=== PATIENT | female | born 1995 | race Caucasian/White ===

== ENCOUNTER 2021-08-26 20:47 | Emergency (ER) | payer OTHER ==
[~2021-08-26] VITALS: Ht 160 cm; Wt 57.6 kg
--- NOTE | 2021-08-26 21:57 | NUR ---
AFTER BEING TRIAGED, PATIENT WAS PLACED BACK IN WAITING ROOM DUE TO NO BEDS AVAILABLE IN THE ER.
[2021-08-26 22:20] LABS: *BILIRUBIN,URIN NEGATIVE (NEGATIVE); *COLOR,URINE YELLOW (YELLOW); *KETONES,URINE NEGATIVE (NEGATIVE); LEUKOCYTE ESTERASE ,URINE 1+ (NEGATIVE); NITRITE, URINE NEGATIVE (NEGATIVE); PH,URINE 6.5 (5.0-8.0); UGLUCOSE NEGATIVE (NEGATIVE)
[2021-08-26 22:22] LABS: *BLOOD, URINE TRACE (NEGATIVE)
[2021-08-26 22:23] LABS: *CLARITY,URINE HAZY (CLEAR)
[2021-08-26 22:34] LABS: *URINE HCG, QUAL NEGATIVE (NEGATIVE); BACTERIA,URINE MODERATE /HPF (NONE SEEN); RBC,URINE 0-3 /HPF (0-3); SQUAMOUS EPITHELIAL CELL,UR FEW /HPF (NONE SEEN)
--- NOTE | 2021-08-26 22:54 | NUR ---
PLACED IN 4A at this time.
[2021-08-26] MEDS ORDERED: NITROFURANTOIN/NITROFURAN MAC 100 MG CAPSULE PO ONE ×2 (23:19→23:30)
[2021-08-26] MEDS ORDERED: NITR-84 PO (23:19)
[2021-08-26] MEDS ORDERED: CEphaleXIN 500 MG CAPSULE ONE (23:19)
[2021-08-26] MEDS ORDERED: CEPH500T PO (23:19)
--- NOTE | 2021-08-26 23:25 | NUR ---
Patient discharged to home in stable condition. Written and verbal after care instructions given. Patient verbalizes understanding of instructions. Stressed follow up or return to ER for worsening s/s.
[2021-08-26] MEDS ORDERED: CEphaleXIN 500 MG CAPSULE PO ONE (23:30)
[2021-08-27 00:20] VITALS: BP 105/71
== END 2021-08-26 23:28 | disposition home or self-care (01) ==
LOC: ER 20:53
DX: N39.0 Urinary tract infection, site not specified (principal); R10.9 Unspecified abdominal pain
CPT/HCPCS: 84703; 87086; A4663

== ENCOUNTER 2024-10-02 11:40 | Emergency (ER) | payer OTHER ==
[~2024-10-02] VITALS: Ht 160 cm; Wt 59.0 kg
[~2024-10-02 11:40] MED LIST: CEPH500T PO; NITR-84 PO
[2024-10-02 12:00] LABS: *BILIRUBIN,URIN NEGATIVE (NEGATIVE); *BLOOD, URINE 3+ (NEGATIVE); *CLARITY,URINE CLEAR (CLEAR); *COLOR,URINE YELLOW (YELLOW); *KETONES,URINE TRACE (NEGATIVE); *PROTEIN,URINE 1+ (NEGATIVE); *UROBILINOGEN,URINE 0.2 E.U./dl (NORMAL); LEUKOCYTE ESTERASE ,URINE NEGATIVE (NEGATIVE); NITRITE, URINE NEGATIVE (NEGATIVE); UGLUCOSE NEGATIVE (NEGATIVE)
[2024-10-02 12:06] LABS: PLATELET COUNT (AUTO) 218 K/uL (179-408); RED BLOOD CELL COUNT(AUTO) 4.78 MIL/uL (3.63-4.92); RED CELL DISTRIBUTION WIDTH 14.0 % (12.3-17.7); WHITE BLOOD COUNT (AUTO) 9.3 K/uL (3.8-11.8)
[2024-10-02 12:18] LABS: CREATININE 0.8 mg/dL (0.6-1.3); SODIUM SERUM 136.0 mmol/L (136-145); UREA NITROGEN, BLOOD 10.0 mg/dL (7-18)
[2024-10-02 12:23] LABS: ASPARTATE AMINOTRANSFERASE 14.0 U/L (15-37); TOTAL PROTEIN, SERUM 7.1 g/dL (6.4-8.2)
[2024-10-02 12:45] LABS: PREGNANCY TEST SERUM QUAN 116399.0 miul/L (0-6)
[2024-10-02 12:59] LABS: SQUAMOUS EPITHELIAL CELL,UR FEW /HPF (NONE SEEN)
[2024-10-02 13:34] VITALS: BP 108/63; TEMP 98.1; O2SAT 98
== END 2024-10-02 13:34 | disposition home or self-care (01) ==
LOC: ER 11:40
DX: O03.9 Complete or unspecified spontaneous abortion without complication (principal); O26.891 Other specified pregnancy related conditions, first trimester; M54.50 Low back pain, unspecified; R23.2 Flushing; R10.2 Pelvic and perineal pain; Z3A.10 10 weeks gestation of pregnancy
CPT/HCPCS: 36415; 76856; 85025; 85730; 86850; 86900; 86901; 87086; A4606; A4663